=== PATIENT | female | born 1990 | race African-American/Black ===

== ENCOUNTER 2018-04-23 14:31 | Emergency (ER) | payer SELFPAY ==
--- NOTE | 2018-04-23 15:17 | EDPHYS ---
Physician Documentation [facility] Name: Walter Hodge Age: 27 yrs Sex: Female : 1990 Arrival Date: 04/23/2018 Time: 14:35 Bed 11 Private MD: Ciro Villanueva ED Physician Medardo Orozco HPI: 04/23 17:47 This 27 yrs old Black Female presents to ER via Ambulatory with complaints of Ear Pain. snw 17:47 The patient presents with pain, swelling, tenderness. The complaints affect the left snw ear. Onset: The symptoms/episode began/occurred suddenly, 3 day(s) ago, and became worse and became persistent. Modifying factors: The symptoms are alleviated by nothing. Associated signs and symptoms: The patient has no apparent associated signs or symptoms. Severity of symptoms: At their worst the symptoms were moderate severe. It is unknown whether or not the patient has had similar symptoms in the past. The patient has not recently seen a physician. had not worn hearing aides in some time and now attempted to wear them again recently. 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 - Social history:: Smoking status: Patient/guardian denies using tobacco, Patient/guardian denies using alcohol. - Ebola Screening: : Patient negative for fever greater than or equal to 101.5 degrees Fahrenheit, and additional compatible Ebola Virus Disease symptoms Patient denies exposure to infectious person Patient denies travel to an Ebola-affected area in the 21 days before illness onset. ROS: 17:46 Constitutional: Negative for fever, chills, and weight loss, Eyes: Negative for injury, snw pain, redness, and discharge, Neck: Negative for injury, pain, and swelling, Cardiovascular: Negative for chest pain, palpitations, and edema, Respiratory: Negative for shortness of breath, cough, wheezing, and pleuritic chest pain, Abdomen/GI: Negative for abdominal pain, nausea, vomiting, diarrhea, and constipation, Back: Negative for injury and pain, : Negative for injury, bleeding, discharge, and swelling, MS/Extremity: Negative for injury and deformity, Skin: Negative for injury, rash, and discoloration, Neuro: Negative for headache, weakness, numbness, tingling, and seizure, Psych: Negative for depression, anxiety, suicide ideation, homicidal ideation, and hallucinations. 17:46 ENT: Positive for ear pain. Exam: 15:33 Constitutional: This is a well developed, well nourished patient who is awake, alert, snw and in no acute distress. Head/Face: Normocephalic, atraumatic. Eyes: Pupils equal round and reactive to light, extra-ocular motions intact. Lids and lashes normal. Conjunctiva and sclera are non-icteric and not injected. Cornea within normal limits. Periorbital areas with no swelling, redness, or edema. Neck: Trachea midline, no thyromegaly or masses palpated, and no cervical lymphadenopathy. Supple, full range of motion without nuchal rigidity, or vertebral point tenderness. No Meningismus. Chest/axilla: Normal chest wall appearance and motion. Nontender with no deformity. No lesions are appreciated. Cardiovascular: Regular rate and rhythm with a normal S1 and S2. No gallops, murmurs, or rubs. Normal PMI, no JVD. No pulse deficits. Respiratory: Lungs have equal breath sounds bilaterally, clear to auscultation and percussion. No rales, rhonchi or wheezes noted. No increased work of breathing, no retractions or nasal flaring. Abdomen/GI: Soft, non-tender, with normal bowel sounds. No distension or tympany. No guarding or rebound. No evidence of tenderness throughout. Back: No spinal tenderness. No costovertebral tenderness. Full range of motion. Skin: Warm, dry with normal turgor. Normal color with no rashes, no lesions, and no evidence of cellulitis. MS/ Extremity: Pulses equal, no cyanosis. Neurovascular intact. Full, normal range of motion. Neuro: Awake and alert, GCS 15, oriented to person, place, time, and situation. Cranial nerves II-XII grossly intact. Motor strength 5/5 in all extremities. Sensory grossly intact. Cerebellar exam normal. Normal gait. 15:33 ENT: Ear canal(s): purulent discharge, swelling, that is moderate, of the left canal, TM's: not visable, because of discharge, Examination of the other ear shows no obvious abnormality, Mouth: is normal, Posterior pharynx: is normal, Voice: is normal, posterior cervical lymphadenopathy, mild tenderness to left mastoid. Vital Signs: 14:46 BP 124 / 82; Pulse 100; Resp 18; Temp 99.7(O); Pulse Ox 98% on R/A; Weight 81.65 kg; hj Height 5 ft. 7 in. (170.18 cm); Pain 10/10; 14:46 Body Mass Index 28.19 (81.65 kg, 170.18 cm) hj MDM: 15:04 Patient medically screened. snw 17:45 Data reviewed: vital signs, nurses notes. Data interpreted: Pulse oximetry: on room air snw is 98 %. Interpretation: normal. Counseling: I had a detailed discussion with the patient and/or guardian regarding: the historical points, exam findings, and any diagnostic results supporting the discharge/admit diagnosis, the presence of at least one elevated blood pressure reading (>120/80) during this emergency department visit, the need for outpatient follow up, to return to the emergency department if symptoms worsen or persist or if there are any questions or concerns that arise at home. Special discussion: Based on the history and exam findings, there is no indication for further emergent testing or inpatient evaluation. I discussed with the patient/guardian the need to see the ENT specialist for further evaluation of the symptoms. I discussed with the patient/guardian the need to see the primary care provider for further evaluation of the symptoms. Administered Medications: 15:13 Drug: [place] 5 mg-325 mg 1 tabs Route: PO; hj 15:35 Follow up: Response: No adverse reaction hj 15:13 Drug: Cortisporin Drops 4 drops Route: Otic; Site: left ear; hj 15:35 Follow up: Response: No adverse reaction hj 15:13 Drug: Augmentin 875 mg Route: PO; hj 15:35 Follow up: Response: No adverse reaction Disposition: 17:36 Co-signature as Attending Physician, Medardo Orozco MD. rn Disposition: 04/23/18 15:16 Discharged to Home. Impression: Acute contact otitis externa. - Condition is Stable. - Discharge Instructions: Otitis Externa. - Prescriptions for Augmentin 875- 125 mg Oral Tablet - take 1 tablet by ORAL route every 12 hours for 10 days; 20 tablet. Diclofenac Sodium 75 mg Oral Tablet Sustained Release - take 1 tablet by ORAL route 2 times per day; 30 tablet. Ciprodex 0.3- 0.1 % Otic Drops, Suspension - instill 4 drop by OTIC route every 12 hours for 7 days , for ears ONLY; 1 Container. - Medication Reconciliation Form, Thank You Letter, Antibiotic Education, Prescription Opioid Use form. - Follow up: Ciro Villanueva MD; When: 1 week; Reason: Recheck today's complaints, Continuance of care, Re-evaluation by your physician. Follow up: Ailin Staples MD; When: 1 - 2 days; Reason: Recheck today's complaints, Continuance of care. Signatures: Maryellen Cadena, PATTERN CARRIER-C PATTERN CARRIER-Csnw Medardo Orozco MD MD rn Joaquin, Henry, RN RN hj Corrections: (The following items were deleted from the chart) 15:36 15:16 04/23/2018 15:16 Discharged to Home. Impression: Acute contact otitis externa. hj Condition is Stable. Forms are Medication Reconciliation Form, Thank You Letter, Antibiotic Education, Prescription Opioid Use. Follow up: Ciro Villanueva; When: 1 week; Reason: Recheck today's complaints, Continuance of care, Re-evaluation by your physician. Follow up: Ailin Staples; When: 1 - 2 days; Reason: Recheck today's complaints, Continuance of care. snw
--- NOTE | 2018-04-23 15:17 | ER ---
Nurse's Notes [facility] Name: Walter Hodge Age: 27 yrs Sex: Female : 1990 Arrival Date: 04/23/2018 Time: 14:35 Bed 11 Private MD: Ciro Villanueva Diagnosis: Acute contact otitis externa Presentation: 04/23 14:43 Presenting complaint: Mother states: shes complaining with R ear pain that moves to the hj R jaw that started about a week ago, pt is hearing impaired; reports fever;. Transition of care: patient was not received from another setting of care. Onset of symptoms was April 23, 2018. Risk Assessment: Do you want to hurt yourself or someone else? Patient reports no desire to harm self or others. Initial Sepsis Screen: Does the patient meet any 2 criteria? No. Patient's initial sepsis screen is negative. Does the patient have a suspected source of infection? No. Patient's initial sepsis screen is negative. Care prior to arrival: None. 14:43 Method Of Arrival: Ambulatory 14:43 Acuity: STEVE 4 Triage Assessment: 14:45 General: Appears in no apparent distress. uncomfortable, Behavior is calm, cooperative, hj appropriate for age. Pain: Complains of pain in right ear. EENT: Reports pain in right ear. 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 - Social history:: Smoking status: Patient/guardian denies using tobacco, Patient/guardian denies using alcohol. - Ebola Screening: : Patient negative for fever greater than or equal to 101.5 degrees Fahrenheit, and additional compatible Ebola Virus Disease symptoms Patient denies exposure to infectious person Patient denies travel to an Ebola-affected area in the 21 days before illness onset. Screenin:46 Abuse screen: Denies threats or abuse. Denies injuries from another. Nutritional hj screening: No deficits noted. Tuberculosis screening: No symptoms or risk factors identified. Fall Risk None identified. Vital Signs: 14:46 BP 124 / 82; Pulse 100; Resp 18; Temp 99.7(O); Pulse Ox 98% on R/A; Weight 81.65 kg; hj Height 5 ft. 7 in. (170.18 cm); Pain 10/10; 14:46 Body Mass Index 28.19 (81.65 kg, 170.18 cm) hj ED Course: 14:35 Patient arrived in ED. mr 14:35 Ciro Villanueva MD is Private Physician. mr 14:45 Triage completed. hj 14:46 Arm band placed on right wrist. hj 14:46 Patient has correct armband on for positive identification. Placed in gown. Bed in low hj position. Call light in reach. Side rails up X 1. 15:00 Maryellen Cadena FNP-C [facility]. snw 15:00 Medardo Orozco MD is Attending Physician. snw 15:14 Ciro Villanueva MD is Referral Physician. snw 15:14 Ailin Staples MD is Referral Physician. snw 15:36 No provider procedures requiring assistance completed. Patient did not have IV access hj during this emergency room visit. Administered Medications: 15:13 Drug: [place] 5 mg-325 mg 1 tabs Route: PO; hj 15:35 Follow up: Response: No adverse reaction hj 15:13 Drug: Cortisporin Drops 4 drops Route: Otic; Site: left ear; hj 15:35 Follow up: Response: No adverse reaction hj 15:13 Drug: Augmentin 875 mg Route: PO; hj 15:35 Follow up: Response: No adverse reaction hj Outcome: 15:16 Discharge ordered by . snw 15:36 Discharged to home ambulatory, with family. hj 15:36 Condition: stable 15:36 Discharge instructions given to patient, family, Instructed on discharge instructions, follow up and referral plans. medication usage, Demonstrated understanding of instructions, follow-up care, medications, Prescriptions given X 3. 15:36 Patient left the ED. hj Signatures: Maryellen Cadena FNP-C FNP-Eileen Mendez mr AlejoAlejandro, RN RN hj Corrections: (The following items were deleted from the chart) 14:48 14:46 Pulse 100bpm; Resp 18bpm; Pulse Ox 98% RA; Temp 99.7F Oral; 81.65 kg; Height 5 hj ft. 7 in.; BMI: 28.1; Pain 10/10; hj
[2018-04-23] MEDS ORDERED: NEOMY/POLY/HC 1% OTIC DROPS ONE (15:26)
[2018-04-23] MEDS ORDERED: HYDROCODONE/APAP 5/325 MG TAB ONE (15:27)
[2018-04-23] MEDS ORDERED: AMOX/K CLAV 875 MG TAB ONE (15:27)
== END 2018-04-23 15:36 | disposition home or self-care (01) ==
LOC: ER 14:31
DX: H60.532 Acute contact otitis externa, left ear (principal); H91.90 Unspecified hearing loss, unspecified ear
CPT/HCPCS: 99283

== ENCOUNTER 2018-09-16 10:17 | Emergency (ER) | payer SELFPAY ==
[2018-09-16] MEDS ORDERED: FLUORESCEIN SODIUM 0.6 MG/WRAP ONE (10:57)
[2018-09-16] MEDS ORDERED: TETRACAINE HCL 0.5% 2ML OPTH ONE (10:57)
--- NOTE | 2018-09-16 11:00 | EDPHYS ---
Physician Documentation [facility] Name: Walter Hodge Age: 27 yrs Sex: Female : 1990 Arrival Date: 09/16/2018 Time: 10:19 Bed 20 Private MD: ED Physician Gonzalo Martinez HPI: 09/16 10:57 This 27 yrs old Black Female presents to ER via Ambulatory with complaints of Redness gs of Eye. 10:57 The patient is experiencing matting or discharge, pain, redness. Onset: The gs symptoms/episode began/occurred 2 day(s) ago. Duration: the symptoms are continuous. Aggravated by blinking. Associated signs and symptoms: Pertinent negatives: chills, fever, headache. Patient does not utilize any form of vision correction. Severity of symptoms: At their worst the symptoms were moderate in the emergency department the symptoms are unchanged. The patient has not experienced similar symptoms in the past. 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 - Social history:: Smoking status: Patient/guardian denies using tobacco. - Ebola Screening: : No symptoms or risks identified at this time. ROS: 10:57 All other systems are negative. gs Exam: 10:57 Head/Face: Normocephalic, atraumatic. Neck: Trachea midline, no thyromegaly or masses gs palpated, and no cervical lymphadenopathy. Supple, full range of motion without nuchal rigidity, or vertebral point tenderness. No Meningismus. Cardiovascular: Regular rate and rhythm with a normal S1 and S2. No gallops, murmurs, or rubs. Normal PMI, no JVD. No pulse deficits. Respiratory: Lungs have equal breath sounds bilaterally, clear to auscultation and percussion. No rales, rhonchi or wheezes noted. No increased work of breathing, no retractions or nasal flaring. 10:57 Eyes: Periorbital structures: appear normal, Pupils: equal, round, and reactive to light and accomodation, Extraocular movements: no acute changes, Conjunctiva: exudate, in the right eye, injected, in the right eye, Corneas: are normal, no evidence of abrasion, foreign body, is not appreciated, a fluorescein strip employed to appreciate the findings, Sclera: abrasion, of the lateral aspect of conjunctiva of right eye Anterior chamber: normal, no hyphema. Vital Signs: 10:27 BP 128 / 71; Pulse 82; Resp 16; Temp 97.2; Pulse Ox 100% ; Weight 79.38 kg; Height 5 sv ft. 8 in. (172.72 cm); Pain 8/10; 11:08 BP 121 / 69; Pulse 79; Resp 14; Pulse Ox 99% ; bp 10:27 Body Mass Index 26.61 (79.38 kg, 172.72 cm) sv MDM: 10:37 Patient medically screened. gs 10:57 Differential diagnosis: Corneal abrasion of Corneal ulcer of Acute iritis of. Data gs reviewed: vital signs, nurses notes. Counseling: I had a detailed discussion with the patient and/or guardian regarding: the historical points, exam findings, and any diagnostic results supporting the discharge/admit diagnosis, the need for outpatient follow up. 09/16 10:38 Order name: Eye Tray; Complete Time: 10:48 gs 09/16 10:38 Order name: Fluoresene Opth strip; Complete Time: 10:53 gs Administered Medications: 10:53 Drug: Tetracaine Drops 0.5 % 1 drops {Note: AT B/S FOR MD.} Route: Ophthalmic; Site: bp right eye; Disposition: 09/16/18 11:00 Discharged to Home. Impression: Unspecified acute conjunctivitis. - Condition is Stable. - Discharge Instructions: Bacterial Conjunctivitis, [id number]. - Prescriptions for Ocuflox 0.3 % Ophthalmic Drops - instill 2 drops by OPHTHALMIC route every 6 hours for 2 days; 5 milliliter. - Medication Reconciliation Form, Thank You Letter, Antibiotic Education, Prescription Opioid Use form. - Follow up: Conner Lucero MD; When: 1 - 2 days; Reason: Re-evaluation by your physician. Signatures: Ailin Price RN RN Gonzalo Martinez MD MD gs Peltier, Brian, RN RN bp Corrections: (The following items were deleted from the chart) 11:08 11:00 09/16/2018 11:00 Discharged to Home. Impression: Unspecified acute bp conjunctivitis. Condition is Stable. Forms are Medication Reconciliation Form, Thank You Letter, Antibiotic Education, Prescription Opioid Use. Follow up: Conner Lucero; When: 1 - 2 days; Reason: Re-evaluation by your physician. gs
--- NOTE | 2018-09-16 11:00 | ER ---
Nurse's Notes [facility] Name: Walter Hodge Age: 27 yrs Sex: Female : 1990 Arrival Date: 09/16/2018 Time: 10:19 Bed 20 Private MD: Diagnosis: Unspecified acute conjunctivitis Presentation: 09/16 10:26 Presenting complaint: Patient states: right eye redness x 1 week. Visine not working. sv Denies eye matting in the eye. Transition of care: patient was not received from another setting of care. Onset of symptoms was September 09, 2018. Care prior to arrival: None. 10:26 Method Of Arrival: Ambulatory sv 10:26 Acuity: STEVE 4 sv 11:07 Risk Assessment: Do you want to hurt yourself or someone else? Patient reports no bp desire to harm self or others. Initial Sepsis Screen: Does the patient meet any 2 criteria? No. Patient's initial sepsis screen is negative. Does the patient have a suspected source of infection? No. Patient's initial sepsis screen is negative. 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 - Social history:: Smoking status: Patient/guardian denies using tobacco. - Ebola Screening: : No symptoms or risks identified at this time. Screenin:29 Abuse screen: Denies threats or abuse. Denies injuries from another. Nutritional bp screening: No deficits noted. Tuberculosis screening: No symptoms or risk factors identified. Fall Risk None identified. Assessment: 10:30 General: Appears in no apparent distress. comfortable, obese, Behavior is calm, bp cooperative, appropriate for age. Pain: Complains of pain in right eye. Neuro: Level of Consciousness is awake, alert, obeys commands, Oriented to person, place, time, situation, Appropriate for age. Cardiovascular: No deficits noted. Respiratory: Airway is patent Respiratory effort is even, unlabored, Respiratory pattern is regular, symmetrical. GI: No signs and/or symptoms were reported involving the gastrointestinal system. : No signs and/or symptoms were reported regarding the genitourinary system. EENT: Eyes with exudate noted from right eye. Derm: No deficits noted. Musculoskeletal: Circulation, motion, and sensation intact. Range of motion: intact in all extremities. 11:06 Reassessment: PT D/C HOME AMBULATORY WITH FAMILY, DX WITH BACTERIAL CONJUNCTIVITIS. bp Vital Signs: 10:27 BP 128 / 71; Pulse 82; Resp 16; Temp 97.2; Pulse Ox 100% ; Weight 79.38 kg; Height 5 sv ft. 8 in. (172.72 cm); Pain 8/10; 11:08 BP 121 / 69; Pulse 79; Resp 14; Pulse Ox 99% ; bp 10:27 Body Mass Index 26.61 (79.38 kg, 172.72 cm) sv ED Course: 10:19 Patient arrived in ED. rg4 10:27 Triage completed. sv 10:29 Ciro Collazo RN is Primary Nurse. bp 10:29 Gonzalo Martinez MD is Attending Physician. gs 10:29 Arm band placed on. bp 10:29 Patient has correct armband on for positive identification. Bed in low position. Call bp light in reach. Side rails up X2. Adult w/ patient. 10:59 Conner Lucero MD is Referral Physician. gs 11:07 No provider procedures requiring assistance completed. Patient did not have IV access bp during this emergency room visit. Administered Medications: 10:53 Drug: Tetracaine Drops 0.5 % 1 drops {Note: AT B/S FOR MD.} Route: Ophthalmic; Site: bp right eye; Outcome: 11:00 Discharge ordered by MD. gs 11:07 Discharged to home ambulatory, with family. bp 11:07 Condition: stable 11:07 Discharge instructions given to patient, family, Instructed on discharge instructions, follow up and referral plans. medication usage, Demonstrated understanding of instructions, follow-up care, medications, Prescriptions given X 1. 11:08 Patient left the ED. bp Signatures: Ailin Price, Monique Prescott RN rg4 Gonzalo Martinez MD MD Ciro Collazo RN RN bp
== END 2018-09-16 11:08 | disposition home or self-care (01) ==
LOC: ER 10:17
DX: H10.31 Unspecified acute conjunctivitis, right eye (principal)
CPT/HCPCS: 99283

== ENCOUNTER 2018-10-20 18:52 | Emergency (ER) | payer SELFPAY ==
--- NOTE | 2018-10-20 20:34 | RAD REPORT ---
EXAM DESCRIPTION: RAD - Ankle Left 3 View - 10/20/2018 8:23 pm CLINICAL HISTORY: PAIN Left ankle twisting injury COMPARISON: No comparisons FINDINGS: No fracture or dislocation of the left ankle is appreciated.
--- NOTE | 2018-10-20 20:49 | RAD REPORT ---
EXAM DESCRIPTION: RAD - Foot Left 3 View - 10/20/2018 8:37 pm CLINICAL HISTORY: PAIN Twisting injury, pain COMPARISON: No comparisons FINDINGS: No fracture or dislocation of the left foot is identified. Mild hallux valgus is seen.
--- NOTE | 2018-10-20 21:05 | EDPHYS ---
Physician Documentation [facility] Name: Walter Hodge Age: 28 yrs Sex: Female : 1990 Arrival Date: 10/20/2018 Time: 18:53 Bed 12 Private MD: Ciro Villanueva ED Physician Aravind Le HPI: 10/20 20:06 This 28 yrs old Black Female presents to ER via Ambulatory with complaints of Foot kb Injury. 20:06 The patient presents with pain, swelling, tenderness. The complaints affect the left kb foot. Context: The problem was sustained at home, resulted from twisted extremity, the patient can fully bear weight, the patient is able to ambulate. Onset: The symptoms/episode began/occurred today. Modifying factors: The symptoms are alleviated by nothing, the symptoms are aggravated by weight bearing. Associated signs and symptoms: Pertinent positives: swelling, Pertinent negatives: calf tenderness, fever, nausea, numbness, rash, tingling, vomiting, warmth, weakness. Severity of symptoms: At their worst the symptoms were moderate, in the emergency department the symptoms are unchanged. The patient has not experienced similar symptoms in the past. The patient has not recently seen a physician. 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 - Social history:: Smoking status: Patient/guardian denies using tobacco. - Ebola Screening: : No symptoms or risks identified at this time. ROS: 20:02 Constitutional: Negative for fever, chills, and weight loss, ENT: Negative for injury, kb pain, and discharge, Neck: Negative for injury, pain, and swelling, Cardiovascular: Negative for chest pain, palpitations, and edema, Respiratory: Negative for shortness of breath, cough, wheezing, and pleuritic chest pain, Abdomen/GI: Negative for abdominal pain, nausea, vomiting, diarrhea, and constipation, Skin: Negative for injury, rash, and discoloration, Neuro: Negative for headache, weakness, numbness, tingling, and seizure. 20:02 MS/extremity: Positive for injury or acute deformity, pain, swelling, tenderness, of the dorsum of left foot. Exam: 20:02 Constitutional: This is a well developed, well nourished patient who is awake, alert, kb and in no acute distress. Head/Face: Normocephalic, atraumatic. Chest/axilla: Normal chest wall appearance and motion. Nontender with no deformity. No lesions are appreciated. Cardiovascular: Regular rate and rhythm with a normal S1 and S2. No gallops, murmurs, or rubs. Normal PMI, no JVD. No pulse deficits. Respiratory: Lungs have equal breath sounds bilaterally, clear to auscultation and percussion. No rales, rhonchi or wheezes noted. No increased work of breathing, no retractions or nasal flaring. Abdomen/GI: Soft, non-tender, with normal bowel sounds. No distension or tympany. No guarding or rebound. No evidence of tenderness throughout. Skin: Warm, dry with normal turgor. Normal color with no rashes, no lesions, and no evidence of cellulitis. Neuro: Awake and alert, GCS 15, oriented to person, place, time, and situation. Cranial nerves II-XII grossly intact. Motor strength 5/5 in all extremities. Sensory grossly intact. Cerebellar exam normal. Normal gait. 20:02 Musculoskeletal/extremity: Extremities: grossly normal except: noted in the dorsum of left foot: pain, swelling, tenderness, ROM: intact in all extremities, Circulation is intact in all extremities. Sensation intact. Vital Signs: 19:08 BP 131 / 87; Pulse 84; Resp 16; Temp 97.3(TE); Pulse Ox 98% on R/A; Weight 79.38 kg; la1 Height 5 ft. 8 in. (172.72 cm); 21:19 BP 116 / 77; Pulse 84; Resp 16; la1 19:08 Body Mass Index 26.61 (79.38 kg, 172.72 cm) la1 MDM: 19:25 Patient medically screened. kb 20:06 Data reviewed: vital signs, nurses notes. Data interpreted: Pulse oximetry: on room air kb is 98 %. Interpretation: normal. 21:04 Counseling: I had a detailed discussion with the patient and/or guardian regarding: the kb historical points, exam findings, and any diagnostic results supporting the discharge/admit diagnosis, radiology results, the need for outpatient follow up, a family practitioner, to return to the emergency department if symptoms worsen or persist or if there are any questions or concerns that arise at home. 10/20 19:16 Order name: Ankle Left 3 View XRAY; Complete Time: 20:45 kb 10/20 20:16 Order name: Foot Left 3 View XRAY; Complete Time: 20:57 kb Administered Medications: No medications were administered Disposition: 10/21 07:31 Co-signature as Attending Physician, Aravind Le MD I agree with the assessment and yanick plan of care. Disposition: 10/20/18 21:04 Discharged to Home. Impression: Pain in left foot. - Condition is Stable. - Discharge Instructions: Foot Sprain. - Work release form, Medication Reconciliation Form, Thank You Letter, Antibiotic Education, Prescription Opioid Use form. - Follow up: Emergency Department; When: As needed; Reason: Worsening of condition. Follow up: Private Physician; When: 2 - 3 days; Reason: Recheck today's complaints, Continuance of care, Re-evaluation by your physician. Signatures: Dispatcher [employer] EDMarisa Dorantes, STENCILER-C STENCILER-Ckb Aravind Le MD MD cha Ballard, Brenda, RN RN Ja Galdamez RN RN la1 Corrections: (The following items were deleted from the chart) 10/20 22:00 21:04 10/20/2018 21:04 Discharged to Home. Impression: Pain in left foot. Condition is bb Stable. Forms are Medication Reconciliation Form, Thank You Letter, Antibiotic Education, Prescription Opioid Use. Follow up: Emergency Department; When: As needed; Reason: Worsening of condition. Follow up: Private Physician; When: 2 - 3 days; Reason: Recheck today's complaints, Continuance of care, Re-evaluation by your physician. kb
--- NOTE | 2018-10-20 21:05 | ER ---
Nurse's Notes [facility] Name: Walter Hodge Age: 28 yrs Sex: Female : 1990 Arrival Date: 10/20/2018 Time: 18:53 Bed 12 Private MD: Ciro Villanueva Diagnosis: Pain in left foot Presentation: 10/20 19:07 Presenting complaint: Father states: She was getting up and when she stood up I think la1 she rolled her left ankle because she has been complaining of pain since. Transition of care: patient was not received from another setting of care. Onset of symptoms was October 20, 2018. Risk Assessment: Do you want to hurt yourself or someone else? Patient reports no desire to harm self or others. Initial Sepsis Screen: Does the patient meet any 2 criteria? No. Patient's initial sepsis screen is negative. Does the patient have a suspected source of infection? No. Patient's initial sepsis screen is negative. Care prior to arrival: None. 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 - Social history:: Smoking status: Patient/guardian denies using tobacco. - Ebola Screening: : No symptoms or risks identified at this time. Screenin:27 Abuse screen: Denies threats or abuse. Nutritional screening: No deficits noted. bb Tuberculosis screening: No symptoms or risk factors identified. Fall Risk None identified. Assessment: 19:27 General: Appears in no apparent distress. uncomfortable, Behavior is calm, cooperative. bb Pain: Complains of pain in dorsum of left foot. Neuro: Level of Consciousness is awake, alert, obeys commands, Oriented to person, place, time, situation. Cardiovascular: No deficits noted. Respiratory: Respiratory effort is even, unlabored, Respiratory pattern is regular. GI: No deficits noted. No signs and/or symptoms were reported involving the gastrointestinal system. Derm: Skin is dry, Skin is normal, Skin temperature is warm. Musculoskeletal: Circulation, motion, and sensation intact. Swelling present in dorsum of left foot Reports pain in dorsum of left foot. 20:22 Reassessment: No changes from previously documented assessment. pt awaiting results of bb Xray. 21:17 Reassessment: Patient is alert, oriented x 3, equal unlabored respirations, skin bb warm/dry/pink. pt and family verbalized understanding of and agree to plan of care discharge instructions given pt assisted to exit via wheelchair accompanied by family. Vital Signs: 19:08 BP 131 / 87; Pulse 84; Resp 16; Temp 97.3(TE); Pulse Ox 98% on R/A; Weight 79.38 kg; la1 Height 5 ft. 8 in. (172.72 cm); 21:19 BP 116 / 77; Pulse 84; Resp 16; la1 19:08 Body Mass Index 26.61 (79.38 kg, 172.72 cm) la1 ED Course: 18:53 Patient arrived in ED. sb2 18:53 Ciro Villanueva MD is Private Physician. sb2 19:08 Triage completed. la1 19:08 Arm band placed on left wrist. la1 19:16 Marisa Smith FNP-C is PHCP. kb 19:16 Aravind Le MD is Attending Physician. kb 19:27 Domonique Suarez, RN is Primary Nurse. bb 19:27 Patient has correct armband on for positive identification. Call light in reach. Adult bb w/ patient. 20:23 Ankle Left 3 View XRAY In Process Unspecified. EDMS 20:37 Foot Left 3 View XRAY In Process Unspecified. EDMS 21:18 No provider procedures requiring assistance completed. Patient did not have IV access bb during this emergency room visit. Administered Medications: No medications were administered Outcome: 21:04 Discharge ordered by MD. kb 21:18 Discharged to home via wheelchair, with family. bb 21:18 Condition: stable 21:18 Discharge instructions given to patient, family, Instructed on discharge instructions, follow up and referral plans. Demonstrated understanding of instructions, follow-up care. 22:00 Patient left the ED. bb Signatures: Dispatcher [employer] EDMS Marisa Smith FNP-C FNP-Domonique Hodgson RN RN Ja Galdamez RN RN la1 Billeau, Bethanie sb2
== END 2018-10-20 22:00 | disposition home or self-care (01) ==
LOC: ER 18:52
DX: M79.672 Pain in left foot (principal); X50.1XXA Overexertion from prolonged static or awkward postures, initial encounter; Y92.009 Unspecified place in unspecified non-institutional (private) residence as the place of occurrence of the external cause; M20.12 Hallux valgus (acquired), left foot
CPT/HCPCS: 99283

== ENCOUNTER 2021-05-10 17:24 | Emergency (ER) | payer BC, SELFPAY ==
[2021-05-10 22:05] LABS: Urine Blood 1+ (Negative); Urine Glucose Negative (Negative); Urine Protein 2+ (Negative); Urine Specific Gravity >=1.030 (1.005-1.030)
[2021-05-10 22:12] LABS: Urine Specific Gravity/Preg >1.030 (1.005-1.030)
[2021-05-10] MEDS ORDERED: NA CHLORIDE 0.9% 1,000 ML ONE (22:44)
[2021-05-10] MEDS ORDERED: KETOROLAC 30 MG/ML INJ ONE (22:44)
[2021-05-10 23:03] LABS: Urine Bacteria >50 /HPF (<20); Urine RBC <5 /HPF (NONE SEEN)
[2021-05-10 23:04] LABS: Absolute Lymphocytes (CBC) 1.9 K/uL (0.7-4.9); Basophils % 0.6 % (0-1.3); Hematocrit 43.9 % (36.0-45.0); Lymphocytes % 24.4 % (15.3-44.8); MPV 9.3 fL (7.6-11.3); RBC Red Blood Cell Count 5.01 M/uL (3.86-4.86)
[2021-05-10 23:16] LABS: Potassium 3.2 mmol/L (3.5-5.1)
--- NOTE | 2021-05-10 23:26 | EDPHYS ---
Physician Documentation [facility] Name: Walter Hodge Age: 30 yrs Sex: Female : 1990 Arrival Date: 05/10/2021 Time: 17:24 Bed 5 Private MD: ED Physician Ju Finch HPI: 05/10 23:37 This 30 yrs old Black Female presents to ER via Ambulatory with complaints of Urinary kb Problem, Cough, Back Pain. 23:37 The patient or guardian reports cough, that is intermittent, described as mild. Onset: kb The symptoms/episode began/occurred 3 day(s) ago. Severity of symptoms: At their worst the symptoms were mild, moderate, in the emergency department the symptoms are unchanged. Modifying factors: The symptoms are alleviated by nothing, the symptoms are aggravated by nothing. Associated signs and symptoms: The patient has no apparent associated signs or symptoms. The patient has not experienced similar symptoms in the past. The patient has not recently seen a physician. Mother reports pt has had cough and congestion for a few days, then started having urinary frequency 2 days ago. Historical: - Allergies: 19:13 No Known Allergies; kg - Home Meds: 19:13 None [Active]; kg - PMHx: 19:13 HEARING IMPAIRED; kg - PSHx: 19:13 None; kg - Immunization history:: Adult Immunizations not up to date, Client reports receiving the 1st dose of the Covid vaccine, January 19, 2021. - Social history:: Smoking status: Patient denies any tobacco usage or history of. Patient uses. ROS: 23:36 Constitutional: Negative for fever, chills, and weight loss. kb 23:36 ENT: Positive for sinus congestion. 23:36 Respiratory: Positive for cough, Negative for dyspnea on exertion, hemoptysis, orthopnea, pleurisy, shortness of breath, sputum production, wheezing. 23:36 : Positive for urinary symptoms, urinary frequency. 23:36 All other systems are negative. Exam: 23:36 Constitutional: This is a well developed, well nourished patient who is awake, alert, kb and in no acute distress. Head/Face: Normocephalic, atraumatic. ENT: Moist Mucous membranes Cardiovascular: Regular rate and rhythm with a normal S1 and S2. No gallops, murmurs, or rubs. No pulse deficits. Respiratory: Respirations even and unlabored. No increased work of breathing, no retractions or nasal flaring. Skin: Warm, dry with normal turgor. Normal color. MS/ Extremity: Pulses equal, no cyanosis. Neurovascular intact. Full, normal range of motion. Neuro: Awake and alert, GCS 15, oriented to person, place, time, and situation. Moves all extremities. Normal gait. Psych: Awake, alert, with orientation to person, place and time. Behavior, mood, and affect are within normal limits. 23:36 Abdomen/GI: Inspection: abdomen appears normal, Bowel sounds: normal, in all quadrants, Palpation: soft, in all quadrants, mild abdominal tenderness, in the right lower quadrant. 23:36 Back: CVA tenderness, that is mild, is noted on the right. Vital Signs: 19:06 BP 113 / 78; Pulse 118; Resp 20; Temp 99.3(O); Pulse Ox 98% on R/A; Weight 107.95 kg kg (M); Height 5 ft. 4 in. (162.56 cm) (R); 22:19 Pulse 114; Resp 18 S; Pulse Ox 100% on R/A; ad5 19:06 Body Mass Index 40.85 (107.95 kg, 162.56 cm) kg MDM: 21:47 Patient medically screened. kb 23:34 Data reviewed: vital signs, nurses notes. Data interpreted: Pulse oximetry: on room air kb is 100 %. Interpretation: normal. Counseling: I had a detailed discussion with the patient and/or guardian regarding: the historical points, exam findings, and any diagnostic results supporting the discharge/admit diagnosis, lab results, radiology results, the need for outpatient follow up, a family practitioner, to return to the emergency department if symptoms worsen or persist or if there are any questions or concerns that arise at home. 05/10 19:25 Order name: Flu kg 05/10 19:25 Order name: COVID-19 : Document "Date of Symptom Onset" if Symptomatic. kg 05/10 19:25 Order name: Strep; Complete Time: 20:45 kg 05/10 19:25 Order name: Influenza Screen (A ; Complete Time: 20:45 EDOR 05/10 20:00 Order name: Throat Culture [facility] 05/10 22:05 Order name: Urine Dipstick-Ancillary; Complete Time: 22:06 EDMS 05/10 22:06 Order name: Urine Microscopic Only tt3 05/10 22:07 Order name: Urine Microscopic Only; Complete Time: 23:05 EDMS 05/10 22:10 Order name: Urine --Ancillary (enter results) tt3 05/10 22:10 Order name: Urine --Ancillary; Complete Time: 22:13 EDMS 05/10 22:15 Order name: SARS-COV-2 RT PCR; Complete Time: 22:22 EDOR 05/10 22:21 Order name: CBC with Diff; Complete Time: 23:11 kb 05/10 22:21 Order name: Basic Metabolic Panel; Complete Time: 23:18 kb 05/10 22:21 Order name: IV Start; Complete Time: 22:58 kb 05/10 22:21 Order name: CT Stone Protocol kb 05/10 23:04 Order name: Urine Culture EDMS Administered Medications: 22:58 Drug: NS 0.9% 1000 ml Route: IV; Rate: 1000 ml; Site: right antecubital; ea 22:58 Drug: Ketorolac 15 mg Route: IVP; Site: right antecubital; ea 23:27 Drug: Potassium Chloride 40 mEq Route: PO; ea 23:27 Drug: Rocephin (cefTRIAXone) 1 grams Route: IV; Rate: calculated rate; Site: right ea antecubital; Disposition Summary: 05/10/21 23:25 Discharge Ordered Location: Home kb Condition: Stable kb Diagnosis - UTI/ Urinary tract infection, site not specified kb - Coronavirus infection, unspecified kb Followup: kb - With: Emergency Department - When: As needed - Reason: Worsening of condition Followup: kb - With: Private Physician - When: 2 - 3 days - Reason: Recheck today's complaints, Continuance of care, Re-evaluation by your physician Discharge Instructions: - Discharge Summary Sheet kb - Urinary Tract Infection, Adult, [id number] kb - Viral Respiratory Infection, [id number] kb - COVID-19 kb Forms: - Medication Reconciliation Form kb - Thank You Letter kb - Antibiotic Education kb - Prescription Opioid Use kb Prescriptions: - Macrobid 100 mg Oral Capsule - take 1 capsule by ORAL route every 12 hours for 7 days; 14 capsule; Refills: 0, kb Product Selection Permitted Signatures: Dispatcher [employer] EDMS Marisa Smith, LINSEY ALY-Ayana Juarez RN RN ea Graham, Kristen, RN RN kg Corrections: (The following items were deleted from the chart) 20:55 19:25 CORONAVIRUS ordered. EDOR EDOR
--- NOTE | 2021-05-10 23:26 | ER ---
Nurse's Notes [facility] Name: Walter Hodge Age: 30 yrs Sex: Female : 1990 Arrival Date: 05/10/2021 Time: 17:24 Bed 5 Private MD: Diagnosis: UTI/ Urinary tract infection, site not specified;Coronavirus infection, unspecified Presentation: 05/10 19:06 Chief complaint: Patient states: Burning when urinating, frequency, pain in left kg abdomen, flank, back x 1 week. Nausea, vomiting, diarrhea, cough x 1 week. Denies fever. Coronavirus screen: Client denies travel out of the [place] in the last 14 days. At this time, unable to obtain information related to travel outside the [place] Ebola Screen: Patient negative for fever greater than or equal to 101.5 degrees Fahrenheit, and additional compatible Ebola Virus Disease symptoms Patient denies exposure to infectious person. Patient denies travel to an Ebola-affected area in the 21 days before illness onset. Initial Sepsis Screen: Does the patient meet any 2 criteria? No. Patient's initial sepsis screen is negative. Initial Sepsis Screen: Does the patient have a suspected source of infection? No. Patient's initial sepsis screen is negative. Risk Assessment: Do you want to hurt yourself or someone else? Patient reports no desire to harm self or others. Onset of symptoms was May 03, 2021. 19:06 Method Of Arrival: Ambulatory kg 19:06 Acuity: STEVE 3 kg Triage Assessment: 19:13 General: Appears in no apparent distress. Behavior is calm, cooperative, appropriate kg for age. Pain: Complains of pain in Left back, left flank, Left abdomen Pain radiates to Generalized pain. Respiratory: Reports cough that is productive. : Reports burning with urination, inability to void, pain urgency, urinary frequency. Musculoskeletal:. Historical: - Allergies: 19:13 No Known Allergies; kg - Home Meds: 19:13 None [Active]; kg - PMHx: 19:13 HEARING IMPAIRED; kg - PSHx: 19:13 None; kg - Immunization history:: Adult Immunizations not up to date, Client reports receiving the 1st dose of the Covid vaccine, January 19, 2021. - Social history:: Smoking status: Patient denies any tobacco usage or history of. Patient uses. Screenin:19 Abuse screen: Denies threats or abuse. Denies injuries from another. Nutritional kg screening: No deficits noted. Tuberculosis screening: No symptoms or risk factors identified. Fall Risk None identified. Assessment: 21:52 General: Appears in no apparent distress. Behavior is calm, cooperative, appropriate ad5 for age. Neuro: Level of Consciousness is awake, alert, obeys commands, Oriented to person, place, time, situation, Appropriate for age. Cardiovascular: Heart tones present Capillary refill < 3 seconds Patient's skin is warm and dry. Respiratory: Airway is patent Respiratory effort is even, unlabored, Respiratory pattern is regular, symmetrical. 21:53 GI: Reports lower abdominal pain, diarrhea, nausea, vomiting. : Reports burning with ad5 urination, urgency, urinary frequency. Derm: Skin is dry, Skin is normal, Skin temperature is warm. 23:38 Reassessment: Patient and/or family updated on plan of care and expected duration. Pain ea level reassessed. Patient is alert, oriented x 3, equal unlabored respirations, skin warm/dry/pink. Discharge instruction given to patient verbalized the understanding of instruction. Vital Signs: 19:06 BP 113 / 78; Pulse 118; Resp 20; Temp 99.3(O); Pulse Ox 98% on R/A; Weight 107.95 kg kg (M); Height 5 ft. 4 in. (162.56 cm) (R); 22:19 Pulse 114; Resp 18 S; Pulse Ox 100% on R/A; ad5 19:06 Body Mass Index 40.85 (107.95 kg, 162.56 cm) kg ED Course: 17:24 Patient arrived in ED. as 19:13 Triage completed. kg 19:19 Patient has correct armband on for positive identification. kg 19:19 No provider procedures requiring assistance completed. kg 20:45 Marisa Smith FNP-C is PHCP. kb 20:45 Ju Finch MD is Attending Physician. kb 21:47 Marisa Smith FNP-C is PHCP. kb 21:47 Ju Finch MD is Attending Physician. kb 21:48 Jose L Tobin is Primary Nurse. ad5 22:18 Patient has correct armband on for positive identification. Call light in reach. Side ad5 rails up X2. Pulse ox on. NIBP on. Door closed. Noise minimized. Warm blanket given. Head of bed elevated. 22:40 CT Stone Protocol In Process Unspecified. EDMS 22:58 Inserted saline lock: 20 gauge in right antecubital area, using aseptic technique. ea Blood collected. 23:37 IV discontinued, intact, bleeding controlled, No redness/swelling at site. Pressure ea dressing applied. Administered Medications: 22:58 Drug: NS 0.9% 1000 ml Route: IV; Rate: 1000 ml; Site: right antecubital; ea 22:58 Drug: Ketorolac 15 mg Route: IVP; Site: right antecubital; ea 23:27 Drug: Potassium Chloride 40 mEq Route: PO; ea 23:27 Drug: Rocephin (cefTRIAXone) 1 grams Route: IV; Rate: calculated rate; Site: right ea antecubital; Outcome: 23:25 Discharge ordered by MD. kb 23:36 Discharged to home ambulatory, with family. ea 23:36 Condition: stable 23:36 Discharge instructions given to patient, Instructed on discharge instructions, follow up and referral plans. medication usage, Demonstrated understanding of instructions, follow-up care, medications, Prescriptions given X 1. 23:42 Patient left the ED. ea Signatures: Dispatcher [employer] EDIL Marisa Smith, LINSEY ALY-Pilar Santos Elena, RN RN Evie Lock RN RN kg Davidson, Andrea ad5 Corrections: (The following items were deleted from the chart) 21:54 21:52 Neuro: Level of Consciousness is awake, alert, obeys commands, Oriented to ad5 person, place, time, situation, Appropriate for age ad5
[2021-05-10] MEDS ORDERED: CEFTRIAXONE/SWI 1gm 1 GM/10 ML SYR ONE (23:45)
[2021-05-10] MEDS ORDERED: POTASSIUM CL SA 10 MEQ TAB PO ONE (23:45)
--- NOTE | 2021-05-11 11:22 | RAD REPORT ---
EXAM DESCRIPTION: CT - Stone Protocol - 05/11/2021 6:26 am CLINICAL HISTORY: Abd pain;Flank pain. COMPARISON: None. TECHNIQUE: Serial axial CT images were obtained from above the diaphragm through the pubic symphysis without administration of intravenous or oral contrast. All CT scans are performed using dose optimization techniques as appropriate, including automated exp osure control and/or standardized protocols, where dose is adjusted for indication for exam and body habitus. FINDINGS: Mild to moderate multifocal motion degradation. Thoracic: Suspected small patchy groundglass opacities in the lungs, in the setting of motion degrada tion. Hepatobiliary: No obvious concerning hepatic lesion identified in the absence of intravenous contrast . The gallbladder is unremarkable. No biliary ductal dilatation. Pancreas: Unremarkable. Spleen: Unremarkable. Gastrointestinal: No evidence of bowel obstruction or perienteric inflammation. The appendix is isabella l. Small amount of fecal material in the colon. Adrenals: No abnormality identified in either adrenal gland. Renal: No obvious parenchymal abnormality in either kidney in the absence of intravenous contrast. No hydronephrosis or urolithiasis. Bladder/Reproductive: Unremarkable appearance of the urinary bladder by CT technique. Unremarkable CT appearance of the uterus and ovaries. Vascular/Lymphatics: No lymphadenopathy identified by CT size criteria. Abdominal aorta is normal in caliber. Musculoskeletal: No concerning osseous lesion identified. Fluid / peritoneum: No significant free fluid. No free intraperitoneal air identified. IMPRESSION: 1. No acute abnormality identified in the abdomen or pelvis by CT. 2. No hydronephrosis or urolithiasis. 3. Suspected small patchy groundglass opacities in the visualized lower lungs, difficult to discern in the setting of motion degradation. Correlate for infectious/inflammatory process. Electronically signed by: Yari Lacy MD 05/10/2021 11:10 PM CDT Due to temporary technical issues with the PACS/Fluency reporting system, reports are being signed by the in house radiologist without review as a courtesy to ensure prompt reporting. The interpreting r adiologist is fully responsible for the content of the report.
[2021-05-11 17:35] VITALS: BP 113/78; TEMP 99.3
[2021-05-11 17:36] VITALS: O2SAT 100
== END 2021-05-10 23:42 | disposition home or self-care (01) ==
LOC: ER 17:24
DX: U07.1 COVID-19 (principal); N39.0 Urinary tract infection, site not specified
CPT/HCPCS: 36415; 74176; 76377; 80048; 81003; 81015; 81025; 85025; 87070; 87081; 87086; 87088; 87804; 96374; 96375; 99284; J0696; J7030; U0003

== ENCOUNTER 2023-01-03 20:49 | Emergency (ER) | payer SELFPAY ==
[2023-01-03 22:16] LABS: SARS-COV-2 RT PCR NEGATIVE (NEGATIVE)
--- NOTE | 2023-01-03 22:24 | ER ---
Nurse's Notes [facility] Name: Walter Hodge Age: 32 yrs Sex: Female : 1990 Arrival Date: 01/03/2023 Time: 20:55 Bed 10 Private MD: Diagnosis: Acute pharyngitis, unspecified Presentation: 01/03 21:03 Chief complaint: Patient states: left ear pain and sore throat since yesterday. Coronavirus screen: Vaccine status: Patient reports receiving the 2nd dose of the covid vaccine. Ebola Screen: Patient negative for fever greater than or equal to 101.5 degrees Fahrenheit, and additional compatible Ebola Virus Disease symptoms. Initial Sepsis Screen: Does the patient meet any 2 criteria? HR > 90 bpm. No. Patient's initial sepsis screen is negative. Does the patient have a suspected source of infection?. Risk Assessment: Do you want to hurt yourself or someone else? Patient reports no desire to harm self or others. Onset of symptoms was January 02, 2023 at 08:00. 21:03 Method Of Arrival: Ambulatory 21:03 Acuity: STEVE 4 Triage Assessment: 21:06 General: Appears uncomfortable, well groomed, well developed, Behavior is calm, kl cooperative. Pain: Complains of pain in left ear. EENT: Reports difficulty swallowing pain in left ear. Historical: - PMHx: 21:06 HEARING IMPAIRED; kl - Immunization history:: Adult Immunizations up to date. - Social history:: Smoking status: Patient denies any tobacco usage or history of. - Family history:: not pertinent. - Hospitalizations: : No recent hospitalization is reported. Screenin:34 [facility] ED Fall Risk Assessment (Adult) History of falling in the last 3 months, kl including since admission No falls in past 3 months (0 pts) Confusion or Disorientation No (0 pts) Intoxicated or Sedated No (0 pts) Impaired Gait No (0 pts) Mobility Assist Device Used No (0 pt) Altered Elimination No (0 pt) Score/Fall Risk Level 0 - 2 = Low Risk Oriented to surroundings, Maintained a safe environment. Abuse screen: Denies threats or abuse. Nutritional screening: No deficits noted. Tuberculosis screening: No symptoms or risk factors identified. Assessment: 22:33 Reassessment: Patient appears in no apparent distress at this time. Patient and/or kl family updated on plan of care and expected duration. Pain level reassessed. Patient is alert, oriented x 3, equal unlabored respirations, skin warm/dry/pink. General: Appears in no apparent distress. Respiratory: Airway is patent Trachea midline Respiratory effort is even, unlabored, Respiratory pattern is regular, symmetrical. Vital Signs: 21:03 BP 122 / 86; Pulse 119; Resp 18; Temp 98.4; Pulse Ox 96% ; Height 5 ft. 6 in. ; Pain kl 5/10; 22:33 BP 113 / 98; Pulse 96; Resp 18; Pulse Ox 99% on R/A; kl 21:03 Pain Scale: Non-Verbal ED Course: 20:55 Patient arrived in ED. mr 21:01 Medardo Orozco MD is Attending Physician. rn 21:06 Triage completed. kl 21:39 Strep Sent. kl 21:39 COVID-19/FLU A+B Sent. kl 22:34 No provider procedures requiring assistance completed. Patient did not have IV access kl during this emergency room visit. 22:34 Patient has correct armband on for positive identification. Bed in low position. Call kl light in reach. Administered Medications: 22:33 Drug: Amoxicillin-Clavulanate PO 875 mg Route: PO; Medication: 22:34 VIS not applicable for this client. Outcome: 22:23 Discharge ordered by . rn 22:34 Discharged to home ambulatory, with family. kl 22:34 Condition: stable 22:34 Discharge instructions given to patient, family, Instructed on discharge instructions, follow up and referral plans. medication usage, Demonstrated understanding of instructions, follow-up care, medications, Prescriptions given X 1. 22:35 Patient left the ED. Signatures: Keyla Foley RN Audrey Cano Medardo Orozco MD MD rn
--- NOTE | 2023-01-03 22:24 | EDPHYS ---
Physician Documentation [facility] Name: Walter Hodge Age: 32 yrs Sex: Female : 1990 Arrival Date: 01/03/2023 Time: 20:55 Bed 10 Private MD: ED Physician Medardo Orozco HPI: 01/03 21:15 This 32 yrs old Black Female presents to ER via Ambulatory with complaints of Ear Pain, rn Sore Throat. 21:16 The patient presents with sore throat. rn 21:16 Onset: The symptoms/episode began/occurred yesterday. Severity of symptoms: At their rn worst the symptoms were mild, in the emergency department the symptoms are unchanged. Modifying factors: The symptoms are alleviated by nothing, the symptoms are aggravated by swallowing. Associated signs and symptoms: Pertinent positives: earache, Pertinent negatives fever, headache, vomiting. The patient has not experienced similar symptoms in the past. The patient has not recently seen a physician. Historical: - PMHx: 21:06 HEARING IMPAIRED; kl - Immunization history:: Adult Immunizations up to date. - Social history:: Smoking status: Patient denies any tobacco usage or history of. - Family history:: not pertinent. - Hospitalizations: : No recent hospitalization is reported. ROS: 21:16 Constitutional: Negative for fever, chills, and weight loss, ENT: + sore throat and rn left ear pain Neck: Negative for injury, pain, and swelling, Cardiovascular: Negative for chest pain, palpitations, and edema, Respiratory: Negative for shortness of breath, cough, wheezing, and pleuritic chest pain, Abdomen/GI: Negative for abdominal pain, nausea, vomiting, diarrhea, and constipation, Back: Negative for injury and pain, MS/Extremity: Negative for injury and deformity, Skin: Negative for injury, rash, and discoloration, Neuro: Negative for headache, weakness, numbness, tingling, and seizure. Exam: 21:16 Constitutional: This is a well developed, well nourished patient who is awake, alert, rn and in no acute distress. Head/Face: Normocephalic, atraumatic. ENT: + tender left cervical LAD, no crepitus, no skin changes, MMM, no stridor, no evidence of ADMISSIONS COUNSELOR. + mild left ear effusion. Neck: Trachea midline, Supple, full range of motion without nuchal rigidity, or vertebral point tenderness. No Meningismus. Cardiovascular: Tachycardic, regular Respiratory: No increased work of breathing, no retractions or nasal flaring. Vital Signs: 21:03 BP 122 / 86; Pulse 119; Resp 18; Temp 98.4; Pulse Ox 96% ; Height 5 ft. 6 in. ; Pain kl 5/10; 22:33 BP 113 / 98; Pulse 96; Resp 18; Pulse Ox 99% on R/A; kl 21:03 Pain Scale: Non-Verbal kl MDM: 21:01 Patient medically screened. rn 22:22 Differential diagnosis: group A strep tonsillitis, influenza, laryngitis, pharyngitis, rn tonsillitis, viral syndrome. Data reviewed: vital signs, nurses notes, lab test result(s), and as a result, I will discharge patient. Counseling: I had a detailed discussion with the patient and/or guardian regarding: the historical points, exam findings, and any diagnostic results supporting the discharge/admit diagnosis, lab results, the need for outpatient follow up, to return to the emergency department if symptoms worsen or persist or if there are any questions or concerns that arise at home. Special discussion: I discussed with the patient/guardian in detail that at this point there is no indication for admission to the hospital. It is understood, however, that if the symptoms persist or worsen the patient needs to return immediately for re-evaluation. 01/03 21:15 Order name: COVID-19/FLU A+B; Complete Time: 22:22 rn 01/03 21:15 Order name: Strep; Complete Time: 22:22 rn 01/03 22:02 Order name: Throat Culture EDMS Administered Medications: 22:33 Drug: Amoxicillin-Clavulanate PO 875 mg Route: PO; kl Disposition Summary: 01/03/23 22:23 Discharge Ordered Location: Home rn Problem: new rn Symptoms: have improved rn Condition: Stable rn Diagnosis - Acute pharyngitis, unspecified rn Followup: rn - With: Private Physician - When: As needed - Reason: Recheck today's complaints, Re-evaluation by your physician Discharge Instructions: - Discharge Summary Sheet rn - Pharyngitis rn - Sore Throat rn Forms: - Medication Reconciliation Form rn - Thank You Letter rn - Antibiotic general intern - Prescription Opioid Use rn Prescriptions: - Augmentin 875-125 mg Oral Tablet - take 1 tablet by ORAL route every 12 hours for 10 days; 20 tablet; Refills: 0, rn Product Selection Permitted Signatures: Dispatcher [employer] Keyla Granado, RN RN Medardo Roy MD MD rn
[2023-01-03] MEDS ORDERED: AMOX/K CLAV 875 MG TAB ONE (22:33)
[2023-01-03 22:39] VITALS: TEMP 98.4
[2023-01-03 22:41] VITALS: BP 113/98; O2SAT 99
== END 2023-01-03 22:35 | disposition home or self-care (01) ==
LOC: ER 20:49
DX: J02.9 Acute pharyngitis, unspecified (principal); Z20.822 Contact with and (suspected) exposure to COVID-19
CPT/HCPCS: 0240U; 87070; 87081; 99283

== ENCOUNTER 2023-06-15 00:39 | Emergency (ER) | payer SELFPAY ==
[2023-06-15 02:41] LABS: SARS-CoV-2 Antigen Rapid Res Positive (Negative)
--- NOTE | 2023-06-15 02:42 | ER ---
Nurse's Notes [facility] Name: Walter Hodge Age: 32 yrs Sex: Female : 1990 Arrival Date: 06/15/2023 Time: 00:39 Bed 14 Private MD: Diagnosis: Acute bronchitis, unspecified;SARS-associated coronavirus as the cause of diseases classified elsewhere Presentation: 06/15 00:49 Chief complaint: Parent and/or Guardian states: She's been coughing, body aches. fever. vc1 Coronavirus screen: Client denies travel out of the [place] in the last 14 days. At this time, the client does not indicate any symptoms associated with coronavirus-19. Ebola Screen: Patient negative for fever greater than or equal to 101.5 degrees Fahrenheit, and additional compatible Ebola Virus Disease symptoms Patient denies exposure to infectious person. Patient denies travel to an Ebola-affected area in the 21 days before illness onset. No symptoms or risks identified at this time. Risk Assessment: Do you want to hurt yourself or someone else? Patient reports no desire to harm self or others. Onset of symptoms was June 10, 2023. 00:49 Method Of Arrival: Ambulatory vc1 00:49 Acuity: STEVE 3 vc1 00:54 Initial Sepsis Screen: Does the patient meet any 2 criteria? No. Patient's initial vc1 sepsis screen is negative. Does the patient have a suspected source of infection? No. Patient's initial sepsis screen is negative. Triage Assessment: 00:52 General: Appears ill, Behavior is cooperative, appropriate for age. Pain: Complains of vc1 pain in generalized body aches. EENT: No deficits noted. EENT: Parent/caregiver reports the patient having nasal congestion. Neuro: Level of Consciousness is awake, alert, obeys commands, Oriented to person, place, time, situation, Appropriate for age. Cardiovascular: No deficits noted. Respiratory: Airway is patent Respiratory effort is even, unlabored, Respiratory pattern is regular, symmetrical. Respiratory: Parent/caregiver reports the patient having cough that is. GI:. GI: Parent/caregiver reports the patient having pain. : No deficits noted. No signs and/or symptoms were reported regarding the genitourinary system. Derm: No deficits noted. No signs and/or symptoms reported regarding the dermatologic system. Musculoskeletal: No deficits noted. No signs and/or symptoms reported regarding the musculoskeletal system. 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 - Social history:: Smoking status: Patient denies any tobacco usage or history of. Screenin:50 [facility] ED Fall Risk Assessment (Adult) History of falling in the last 3 months, ha1 including since admission No falls in past 3 months (0 pts) Confusion or Disorientation No (0 pts) Intoxicated or Sedated No (0 pts) Impaired Gait No (0 pts) Mobility Assist Device Used No (0 pt) Altered Elimination No (0 pt) Score/Fall Risk Level 0 - 2 = Low Risk Oriented to surroundings, Maintained a safe environment, Educated pt \T\ family on fall prevention, incl call for assistance when getting out of bed. 00:51 Abuse screen: Denies threats or abuse. Nutritional screening: No deficits noted. vc1 Tuberculosis screening: No symptoms or risk factors identified. Assessment: 00:48 General: Appears comfortable, Behavior is calm, cooperative. Pain: Unable to use pain ha1 scale. FLACC scale score is 0 out of 10. Neuro: Level of Consciousness is awake, alert, obeys commands, Oriented to person, place, time, situation. Cardiovascular: Patient's skin is warm and dry. Respiratory: Reports nasal congestion Airway is patent Respiratory effort is even, unlabored, Respiratory pattern is regular, symmetrical, Breath sounds are clear bilaterally. 01:48 Reassessment: Patient and/or family updated on plan of care and expected duration. Pain ha1 level reassessed. Patient is alert, oriented x 3, equal unlabored respirations, skin warm/dry/pink. 02:50 Reassessment: Patient and/or family updated on plan of care and expected duration. Pain ha1 level reassessed. Patient is alert, oriented x 3, equal unlabored respirations, skin warm/dry/pink. Vital Signs: 00:54 BP 112 / 70; Pulse 97; Resp 17; Temp 98.1; Pulse Ox 96% ; Weight 99.79 kg; Height 5 ft. vc1 5 in. ; 02:13 BP 110 / 87; Pulse 94; Resp 17 S; Pulse Ox 97% on R/A; ha1 00:54 Body Mass Index 36.61 (99.79 kg, 165.1 cm) vc1 ED Course: 00:42 Patient arrived in ED. mr 00:46 Mary[facility] Conklin [facility]C [facility]. snw 00:46 Aravind Le MD is Attending Physician. snw 00:48 Patient has correct armband on for positive identification. Placed in gown. Bed in low ha1 position. Call light in reach. Side rails up X 1. 00:50 Triage completed. vc1 00:51 Arm band placed on right wrist. vc1 02:42 Jonna Don, RN is Primary Nurse. ha1 03:20 Provided Education on: medication administration . ha1 03:27 No provider procedures requiring assistance completed. ha1 03:27 Patient did not have IV access during this emergency room visit. ha1 Administered Medications: No medications were administered Medication: 03:00 VIS not applicable for this client. ha1 Outcome: 02:42 Discharge ordered by . snw 03:27 Patient left the ED. ha1 03:27 Discharged to home ambulatory, with family. ha1 03:27 Condition: stable 03:27 Discharge instructions given to patient, family, Instructed on discharge instructions, follow up and referral plans. medication usage, Demonstrated understanding of instructions, follow-up care, medications, Prescriptions given X 4. Signatures: Maryellen Conklin FNP-C FINISHING RANGE OPERATOR-Csn Audrey Song Mari Antonio RN RN 1 Jonna Don, YANICK RN ha1 Corrections: (The following items were deleted from the chart) 00:51 00:50 Allergies: No Known Allergies; vc1 vc1 00:51 00:50 PMHx: Angina pectoris; vc1 vc1
--- NOTE | 2023-06-15 02:43 | EDPHYS ---
Physician Documentation [facility] Name: Walter Hodge Age: 32 yrs Sex: Female : 1990 Arrival Date: 06/15/2023 Time: 00:39 Bed 14 Private MD: ALONZO Physician Aravind Le HPI: 06/15 01:38 This 32 yrs old Black Female presents to ER via Ambulatory with complaints of Body snw aches, Congestion. 01:38 The patient or guardian reports cough, described as moderate, flu symptoms, low-grade snw fever, myalgias, no appetite. Onset: The symptoms/episode began/occurred acutely. Associated signs and symptoms: Pertinent positives: rhinorrhea, congestion, cough. Severity of symptoms: At their worst the symptoms were moderate. The patient has experienced similar episodes in the past. It is unknown whether or not the patient has recently seen a physician. 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 - Social history:: Smoking status: Patient denies any tobacco usage or history of. ROS: 01:37 Eyes: Negative for injury, pain, redness, and discharge, ENT: Negative for injury, snw pain, and discharge, Neck: Negative for injury, pain, and swelling, Cardiovascular: Negative for chest pain, palpitations, and edema. 01:37 Abdomen/GI: Negative for abdominal pain, nausea, vomiting, diarrhea, and constipation, Back: Negative for injury and pain, : Negative for injury, bleeding, discharge, and swelling, MS/Extremity: Negative for injury and deformity, Skin: Negative for injury, rash, and discoloration, Neuro: Negative for headache, weakness, numbness, tingling, and seizure, Psych: Negative for depression, anxiety, suicide ideation, homicidal ideation, and hallucinations. 01:37 Constitutional: Positive for body aches, malaise. 01:37 Respiratory: Positive for cough. Exam: 01:36 Constitutional: This is a well developed, well nourished patient who is awake, alert, snw and in no acute distress. Head/Face: Normocephalic, atraumatic. Eyes: Pupils equal round and reactive to light, extra-ocular motions intact. Lids and lashes normal. Conjunctiva and sclera are non-icteric and not injected. Cornea within normal limits. Periorbital areas with no swelling, redness, or edema. 01:36 Neck: Trachea midline, no thyromegaly or masses palpated, and no cervical lymphadenopathy. Supple, full range of motion without nuchal rigidity, or vertebral point tenderness. No Meningismus. Chest/axilla: Normal chest wall appearance and motion. Nontender with no deformity. No lesions are appreciated. Cardiovascular: Regular rate and rhythm with a normal S1 and S2. No gallops, murmurs, or rubs. Normal PMI, no JVD. No pulse deficits. Respiratory: Lungs have equal breath sounds bilaterally, clear to auscultation and percussion. No rales, rhonchi or wheezes noted. No increased work of breathing, no retractions or nasal flaring. Abdomen/GI: Soft, non-tender, with normal bowel sounds. No distension or tympany. No guarding or rebound. Mild tenderness to upper abd bilaterally Back: No spinal tenderness. No costovertebral tenderness. Full range of motion. Skin: Warm, dry with normal turgor. Normal color with no rashes, no lesions, and no evidence of cellulitis. MS/ Extremity: Pulses equal, no cyanosis. Neurovascular intact. Full, normal range of motion. Neuro: Awake and alert, GCS 15, oriented to person, place, time, and situation. Cranial nerves II-XII grossly intact. Motor strength 5/5 in all extremities. Sensory grossly intact. Cerebellar exam normal. Normal gait. Psych: Awake, alert, with orientation to person, place and time. Behavior, mood, and affect are within normal limits. 01:36 ENT: External ear(s): are unremarkable, Ear canal(s): cerumen impaction, that is moderate, bilaterally, TM's: not visable, Nose: is normal, Mouth: is normal. Vital Signs: 00:54 BP 112 / 70; Pulse 97; Resp 17; Temp 98.1; Pulse Ox 96% ; Weight 99.79 kg; Height 5 ft. vc1 5 in. ; 02:13 BP 110 / 87; Pulse 94; Resp 17 S; Pulse Ox 97% on R/A; ha1 00:54 Body Mass Index 36.61 (99.79 kg, 165.1 cm) vc1 MDM: 01:23 Patient medically screened. yanick 02:46 Differential diagnosis: bronchitis, flu, URI. Data reviewed: vital signs, nurses notes, snw lab test result(s). Historians other than the Patient: Parent: Mom. Counseling: I had a detailed discussion with the patient and/or guardian regarding the historical points, exam findings, and any diagnostic results supporting the discharge/admit diagnosis, lab results, the need for outpatient follow up, to return to the emergency department if symptoms worsen or persist or if there are any questions or concerns that arise at home. Special discussion: Based on the history and exam findings, there is no indication for further emergent testing or inpatient evaluation. I discussed with the patient/guardian the need to see the primary care provider for further evaluation of the symptoms. 06/15 01:35 Order name: Flu; Complete Time: 02:46 snw 06/15 01:35 Order name: SARS RAPID; Complete Time: 02:41 snw Administered Medications: No medications were administered Disposition Summary: 06/15/23 02:42 Discharge Ordered Location: Home snw Condition: Stable snw Diagnosis - Acute bronchitis, unspecified snw - SARS-associated coronavirus as the cause of diseases classified elsewhere snw Followup: snw - With: Emergency Department - When: As needed - Reason: Worsening of condition Followup: snw - With: Private Physician - When: 2 - 3 days - Reason: Recheck today's complaints, Continuance of care, Re-evaluation by your physician Discharge Instructions: - Discharge Summary Sheet snw - Acute Bronchitis, Adult snw - Aspirin and Your Heart snw - Rehydration, Adult snw - COVID-19 snw - 10 Things You Can Do to Manage Your COVID-19 Symptoms at Home - [facility] (04/28/2021) snw Forms: - Medication Reconciliation Form snw - Thank You Letter snw - Antibiotic Education snw - Prescription Opioid Use snw - Patient Portal Instructions snw - Leadership Thank You Letter snw Prescriptions: - Zyrtec 10 mg Oral Tablet - take 1 tablet by ORAL route once daily As needed; 20 tablet; Refills: 0, snw Product Selection Permitted - Tessalon Perles 100 mg Oral Capsule - take 1 capsule by ORAL route every 8 hours As needed; 15 capsule; Refills: 0, snw Product Selection Permitted - Pepcid 20 mg Oral Tablet - take 1 tablet by ORAL route once daily; 20 tablet; Refills: 0, Product snw Selection Permitted Signatures: Dispatcher [employer] Aravind Corbin MD MD cha Waters, Shelly, PARCEL POST ORDER CLERK-C PARCEL POST ORDER CLERK-Csnw Mari Antonio RN RN vc1 Corrections: (The following items were deleted from the chart) 00:51 00:50 Allergies: No Known Allergies; vc1 vc1 00:51 00:50 PMHx: Angina pectoris; vc1 vc1
[2023-06-15 03:44] VITALS: TEMP 98.1
[2023-06-15 03:46] VITALS: BP 110/87; O2SAT 97
== END 2023-06-15 03:27 | disposition home or self-care (01) ==
LOC: ER 00:39
DX: U07.1 COVID-19 (principal); J20.9 Acute bronchitis, unspecified
CPT/HCPCS: 36415; 87804; 87811; 99283

== ENCOUNTER 2024-01-21 11:13 | Emergency (ER) | payer SELFPAY ==
--- NOTE | 2024-01-21 12:34 | ER ---
Nurse's Notes [facility] Name: Walter Hodge Age: 33 yrs Sex: Female : 1990 Arrival Date: 01/21/2024 Time: 11:13 Bed IW6 Private MD: Diagnosis: Pilonidal cyst with abscess Presentation: 01/20 11:27 Chief complaint: Patient states: Abscess between buttocks area for 5 days. No drainage ll1 or fever. Coronavirus screen: Client denies travel out of the [place] in the last 14 days. At this time, the client does not indicate any symptoms associated with coronavirus-19. Ebola Screen: Patient denies travel to an Ebola-affected area in the 21 days before illness onset. Initial Sepsis Screen: Does the patient meet any 2 criteria? No. Patient's initial sepsis screen is negative. Does the patient have a suspected source of infection? No. Patient's initial sepsis screen is negative. Risk Assessment: Do you want to hurt yourself or someone else? Patient reports no desire to harm self or others. Onset of symptoms was January 17, 2024. 11:27 Method Of Arrival: Wheelchair ll1 11:27 Acuity: STEVE 3 ll1 Historical: - Allergies: 11:24 Amoxicillin; ll1 11:24 PENICILLINS; ll1 - PMHx: 11:24 HEARING IMPAIRED; ll1 - PSHx: 11:24 None; ll1 - Immunization history:: Adult Immunizations up to date. - Infectious Disease History:: Denies. - Social history:: Smoking status: Patient denies any tobacco usage or history of. Screenin:06 [facility] ED Fall Risk Assessment (Adult) History of falling in the last 3 months, as6 including since admission No falls in past 3 months (0 pts) Confusion or Disorientation No (0 pts) Intoxicated or Sedated No (0 pts) Impaired Gait No (0 pts) Mobility Assist Device Used No (0 pt) Altered Elimination No (0 pt) Score/Fall Risk Level 0 - 2 = Low Risk Oriented to surroundings, Maintained a safe environment, Educated pt \T\ family on fall prevention, incl call for assistance when getting out of bed, Assessed \T\ reinforced patient's understanding of fall precautions. Abuse screen: Denies threats or abuse. Denies injuries from another. Nutritional screening: No deficits noted. Tuberculosis screening: No symptoms or risk factors identified. Assessment: 13:07 General: Appears uncomfortable, Behavior is calm, cooperative. Pain: Complains of pain as6 in buttocks. Derm: Abscess located on gluteal cleft. Vital Signs: 11:27 BP 117 / 75; Pulse 102; Resp 17; Temp 98.5; Pulse Ox 96% ; Height 5 ft. 6 in. ; Pain ll1 8/10; 11:27 Pain Scale: Adult ll1 ED Course: 11:16 Patient arrived in ED. im 11:28 Triage completed. ll1 11:28 Arm band placed on. ll1 12:27 Mar[facility] Smith [facility]-C [facility]. kb 12:27 Josué Vasquez MD is Attending Physician. kb 13:06 Patient has correct armband on for positive identification. Provided Education on: as6 follow up, abx teaching . 13:06 No provider procedures requiring assistance completed. Patient did not have IV access as6 during this emergency room visit. Administered Medications: No medications were administered Medication: 12:40 VIS not applicable for this client. as6 Outcome: 12:34 Discharge ordered by MD. kb 12:40 Discharged to home via wheelchair, as6 12:40 Condition: stable 12:40 Discharge instructions given to patient, Instructed on discharge instructions, follow up and referral plans. medication usage, Demonstrated understanding of instructions, follow-up care, medications, Prescriptions given X 2, 13:07 Patient left the ED. as6 Signatures: Marisa Smith FNP-C FNP-Ckb Lewis, Lynsay RN RN ll1 Jonathan Cheney RN RN as6 Alannah Bass
--- NOTE | 2024-01-21 12:34 | EDPHYS ---
Physician Documentation [facility] Name: Walter Hodge Age: 33 yrs Sex: Female : 1990 Arrival Date: 01/21/2024 Time: 11:13 Bed IW6 Private MD: ED Physician Josué Vasquez HPI: 01/20 13:03 This 33 yrs old Black Female presents to ER via Wheelchair with complaints of Boil - In kb buttocks. 13:04 Pt is a 33 year old female who presents for abscess between buttocks that started 4-5 kb days ago. States she has had this multiple times in the past and it normally ruptures on its own after using a salve, but it hasn't yet. Denies fever. . Historical: - Allergies: 11:24 Amoxicillin; ll1 11:24 PENICILLINS; ll1 - PMHx: 11:24 HEARING IMPAIRED; ll1 - PSHx: 11:24 None; ll1 - Immunization history:: Adult Immunizations up to date. - Infectious Disease History:: Denies. - Social history:: Smoking status: Patient denies any tobacco usage or history of. ROS: 13:02 Constitutional: As per HPI kb Exam: 13:02 Constitutional: This is a well developed, well nourished patient who is awake, alert, kb and in no acute distress. Head/Face: Normocephalic, atraumatic. ENT: Moist Mucous membranes Cardiovascular: Regular rate Respiratory: Respirations even and unlabored. No increased work of breathing. Talking in full sentences MS/ Extremity: Pulses equal, no cyanosis. Neurovascular intact. Full, normal range of motion. Neuro: Awake and alert, GCS 15, oriented to person, place, time, and situation. Moves all extremities. Normal gait. 13:02 Skin: abscess, that is moderate sized, of the gluteal cleft, with fluctuance, that is moderate, Vital Signs: 11:27 BP 117 / 75; Pulse 102; Resp 17; Temp 98.5; Pulse Ox 96% ; Height 5 ft. 6 in. ; Pain ll1 8/10; 11:27 Pain Scale: Adult ll1 MDM: 12:27 Patient medically screened. kb 13:03 Data reviewed: vital signs, nurses notes. kb 13:03 Differential diagnosis: abscess, allergic reaction, cellulitis, insect bite. Test kb considered but Not performed: Other Details I recommended I\T\D of abscess, mother and pt refuse procedure at this time. States they want to try oral antibiotics first and will come back or follow up with surgeon if symptoms persist or worsen. . Historians other than the Patient: Parent: mother. Counseling: I had a detailed discussion with the patient and/or guardian regarding the historical points, exam findings, and any diagnostic results supporting the discharge/admit diagnosis, the need for outpatient follow up, a general surgeon, to return to the emergency department if symptoms worsen or persist or if there are any questions or concerns that arise at home. Administered Medications: No medications were administered Disposition Summary: 01/21/24 12:34 Discharge Ordered Notes: Location: Home kb Condition: Stable kb Diagnosis - Pilonidal cyst with abscess kb Followup: kb - With: Emergency Department - When: As needed - Reason: Worsening of condition Followup: kb - With: Private Physician - When: 2 - 3 days - Reason: Recheck today's complaints, Continuance of care, Re-evaluation by your physician Discharge Instructions: - Discharge Summary Sheet kb - Pilonidal Cyst kb Forms: - Medication Reconciliation Form kb - Thank You Letter kb - Antibiotic Education kb - Prescription Opioid Use kb - Patient Portal Instructions kb - Leadership Thank You Letter kb Prescriptions: - Cephalexin 500 mg Oral Capsule - take 1 capsule ORAL route every 8 hours for 10 days; 30 capsule; Refills: 0, kb Product Selection Permitted - Bactrim DS 800-160 mg Oral Tablet - take 1 tablet ORAL route every 12 hours for 10 days; 20 tablet; Refills: 0, kb Product Selection Permitted Addendum: 01/22/2024 15:07 I was immediately available for consultation during this patient's visit. I did not e c2 personally see the patient or discuss the patient with the MIO. . Signatures: Marisa Smith FNP-C FNP-Eugenia Bee RN RN ll1 Jonathan Cheney RN RN as6 Josué Vasquez MD MD ec2
[2024-01-21 13:25] VITALS: BP 117/75; TEMP 98.5; O2SAT 96
== END 2024-01-21 13:07 | disposition home or self-care (01) ==
LOC: ER 11:13
DX: L05.01 Pilonidal cyst with abscess (principal); Z88.0 Allergy status to penicillin; Z88.1 Allergy status to other antibiotic agents
CPT/HCPCS: 99283